=== PATIENT | female | born 1975 ===

== ENCOUNTER 2018-07-14 18:52 | Emergency (ER) | payer OTHER ==
[2018-07-14 19:11] VITALS: BP 125/75; PULSE 75; RESP 18; TEMP 97.5; O2SAT 100
--- NOTE | 2018-07-14 19:31 | ED PDOC ---
Lower Extremity Pain/Injury Time Seen by Provider: 07/14/18 19:25 Chief Complaint (Nursing): Lower Extremity Problem/Injury Chief Complaint (Provider): Lower Extremity Problem/Injury History Per: Patient History/Exam Limitations: no limitations Onset/Duration Of Symptoms: Persistent (x5 months) Current Symptoms Are (Timing): Still Present Additional Complaint(s): 43 year old female with medical history of mild anemia, presents to the emergency department with a complaint of right foot pain ongoing for 5 months. Patient states she sustained a hardened callous with pain upon bearing weight after stepping on a wooden splinter 5 months ago which has not been removed since onset. She was evaluated by a gas turbine mechanic 2 weeks ago and recommended surgery. During pre-op testing, patient had abnormal INR and PTT which postponed the surgery. She was recently cleared by psychiatric np, however, was unable to reschedule surgery as gas turbine mechanic was on vacation. Patient states her pain started to feel unbearable, thus, prompting ED visit. Otherwise, she denies any further medical complaints. PCP: none provided Past Medical History Reviewed: Historical Data, Nursing Documentation, Vital Signs Vital Signs: Last Vital Signs Temp 97.5 F L 07/14/18 19:08 Pulse 75 07/14/18 19:08 Resp 18 07/14/18 19:08 BP 125/75 07/14/18 19:08 Pulse Ox 100 07/14/18 19:08 - Medical History PMH: Anemia (mild) - Family History Family History: States: Unknown Family Hx - Allergies Allergies/Adverse Reactions: Allergies Allergy/AdvReac Type Severity Reaction Status Date / Time No Known Allergies Allergy Verified 07/14/18 19:08 Review of Systems ROS Statement: Except As Marked, All Systems Reviewed And Found Negative Musculoskeletal: Positive for: Foot Pain (right plantar with hardened callous) Physical Exam - Reviewed Nursing Documentation Reviewed: Yes Vital Signs Reviewed: Yes - Physical Exam Appears: Positive for: No Acute Distress Pulses-Dorsalis Pedis (R): 2+ Extremity: Positive for: Tenderness (right plantar foot, under 5th digit on palpation). Negative for: Other (erythema or drainage to right plantar foot) Neurological/Psych: Positive for: Awake, Alert, Oriented. Negative for: Motor/Sensory Deficits - ECG O2 Sat by Pulse Oximetry: 100 (RA) Pulse Ox Interpretation: Normal Medical Decision Making Medical Decision Making: Time: 1928 Initial Plan: Podiatry consult ordered. * Tylenol PO Time: 1220 --Case discussed with Dr. Montejo from podiatry team who recommends providing patient with clinic information and to make an appointment on 07/17/18 between 0830 and 1030, otherwise, patient requires no further work-up in ED. She additionally advises that if patient cannot obtain an appointment for 07/17/18, then patient should arrive in person, regardless, prior to 1030. Provider discussed plan in Kazakh, verbally and on discharge papers, with patient who expressed understanding. Patient will be discharged home. Counseling was provided and all questions were answered regarding diagnosis. There is agreement to discharge plan. Return precautions discussed. Clinical Impression: foreign body in foot; toe infection Scribe Attestation: Documented by Daxa Solis, acting as a scribe for Laura Sy APN. Provider Scribe Attestation: All medical record entries made by the Scribe were at my direction and personally dictated by me. I have reviewed the chart and agree that the record accurately reflects my personal performance of the history, physical exam, medical decision making, and the department course for this patient. I have also personally directed, reviewed, and agree with the discharge instructions and disposition. Disposition - Clinical Impression Clinical Impression: Foreign bdy foot/toe-inf - Patient ED Disposition Is Patient to be Admitted: No Discussed With : Alice Montejo Doctor Will See Patient In The: Office Counseled Patient/Family Regarding: Diagnosis, Need For Followup, Rx Given - Disposition Referrals: Podiatry Clinic [Outside] Disposition: Routine/Home Disposition Time: 19:36 Condition: GOOD Additional Instructions: Por favor de llamar a la clinica de podiatry [place] (07/17) a las 8am para kashif. Si le dicn que no la pueden cojer vaya a la clinica de todos modos antes de las 10am. Instructions: Removal of Foreign Body in Skin Print Language: [place]
--- NOTE | 2018-07-14 19:31 | ED PDOC ---
Lower Extremity Pain/Injury Chief Complaint (Nursing): Lower Extremity Problem/Injury Past Medical History Vital Signs: Last Vital Signs Temp 97.5 F L 07/14/18 19:08 Pulse 75 07/14/18 19:08 Resp 18 07/14/18 19:08 BP 125/75 07/14/18 19:08 Pulse Ox 100 07/14/18 19:08 - Allergies Allergies/Adverse Reactions: Allergies Allergy/AdvReac Type Severity Reaction Status Date / Time No Known Allergies Allergy Verified 07/14/18 19:08 - ECG O2 Sat by Pulse Oximetry: 100 Disposition - Clinical Impression Clinical Impression: Foreign bdy foot/toe-inf - Patient ED Disposition Is Patient to be Admitted: No Counseled Patient/Family Regarding: Diagnosis, Need For Followup - Disposition Referrals: Podiatry Clinic [Outside] Disposition: Routine/Home Disposition Time: 19:30 Condition: GOOD Additional Instructions: Por favor de llamar a la clinica de podiatry [place] (07/17) a las 8am para kashif. Si le dicn que no la pueden cojer vaya a la clinica de todos modos antes de las 10am. Instructions: Removal of Foreign Body in Skin Print Language: CZECH - POA Present On Arrival: None
== END 2018-07-14 19:48 | disposition home or self-care (01) ==
LOC: H.ER 18:52
DX: S90.859A Superficial foreign body, unspecified foot, initial encounter (principal); L08.9 Local infection of the skin and subcutaneous tissue, unspecified